=== PATIENT | female | born 1930 | race Caucasian/White ===

== ENCOUNTER → 2016-11-10 | Outpatient (CLI) | payer MEDICARE, BC ==
[~2016-11-10] MED LIST: CYCLOBENZAPRINE5 MG PO; IBUPROFEN800 MG PO; LORTAB 10-3251 EACH PO; METFORMIN HCL500 M1 PO; METFORMIN HCL500 M2 PO; PILOCARPINE HCL5 MG PO; POLYSPORIN15 GM TOP; SIMVASTATIN80 MG PO; WELLBUTRIN PO
--- NOTE | ~2016-11-10 | CR181 ---
[facility] A Service [facility] RADIOLOGY TEXT RESULTS PATIENT: NICHOLE MAC LOCATION: [facility] : 28 UNIT #: [id number] AGE: [address]: Justin Doctor NOT IN SYSTEM SEX: F ORDER DR: [id number] [address] [address] [id number] O MR#: [id number] Acc #: [id number] NAME: NICHOLE MAC : 1930 SEX: F STUDY DATE/TIME: 11/10/2016 10:43 UNIT: [facility]AD ROOM: STUDY DESCRIPTION: CR Lumbar Spine 2 or 3 Views Attending Physician: Generic Doctor Not In System Referring Physician: Generic Doctor Not In System Ordering Physician: Physician Non-Staff Primary Care Physician: Roberta Aggarwal M.D. MEDICAL IMAGING REPORT This report is preliminary unless electronic signature is present. EXAM Lumbar spine, 3-view series INDICATIONS Low back pain. Previous lumbar spine surgery. Patient has had symptoms since 2005. COMPARISON 03/30/2015 FINDINGS AP, lateral and coned-down lateral views of the lumbar spine were obtained. The patient appears to have undergone laminectomy at L3 and L4. There is mild disc space narrowing at L4-5 and the other disc spaces are normal. The alignment is normal. IMPRESSION The patient appears to be status post laminectomies at L3 and L4, which has occurred since May 2014. There is no subluxation. There is mild disc space narrowing at L4-5. Dictated by... Delta Gross M.D. THIS IS AN ELECTRONICALLY VERIFIED REPORT Delta Gross M.D. at 11/11/2016 6:04 AM FEL/psc TD: 11/11/2016 03:18 JOB #: [id number] [facility] A [facility] RADIOLOGY TEXT RESULTS PATIENT: NICHOLE MAC LOCATION: [facility] : 28 UNIT #: [id number] AGE: [address]: Generic Doctor NOT IN SYSTEM SEX: F ORDER DR: MEDICAL IMAGING REPORT Page 1 of 1
--- NOTE | ~2016-11-10 | CR58 ---
[facility] A Service of [facility] RADIOLOGY TEXT RESULTS PATIENT: NICHOLE MAC LOCATION: [facility] : 28 UNIT #: [id number] AGE: [address]: JACKI ROCA (HOLLY) SEX: F ORDER DR: [id number] [address] [address] [id number] O MR#: [id number] Acc #: [id number] NAME: NICHOLE MAC : 1930 SEX: F STUDY DATE/TIME: 11/10/2016 10:43 UNIT: [facility] ROOM: STUDY DESCRIPTION: CR Cervical Spine 2 or 3 Views Attending Physician: Holly Roca Aprn Referring Physician: Holly Roca Aprn Ordering Physician: Physician Non-Staff Primary Care Physician: Roberta Aggarwal M.D. MEDICAL IMAGING REPORT This report is preliminary unless electronic signature is present. EXAM Cervical series 11/10/2016 INDICATIONS Degenerative disc disease, spinal stenosis, cervical surgery in 2014, pain for years down the left shoulder. Numbness and tingling on the left, back pain on the left. Neck pain. TECHNIQUE Frontal, lateral, open-mouth odontoid, dedicated odontoid, and flexion/extension views were performed. COMPARISON 07/14/2012 FINDINGS Imaging was initially performed 11/10/2016. Flexion and extension views were not performed, as ordered, and the patient returned for completion of imaging 11/17/2016. Dens and lateral masses intact. Minimal antegrade listhesis of C2 upon C3. Minimal retrograde listhesis of C5 upon C6. Cervicothoracic junction intact. There is degenerative disc disease at C4-5, C5-6 and C6-7. Spurring from C4 inferiorly. Soft tissues unremarkable. There is moderate bilateral facet arthropathy in the dro-yb-cnnbi cervical levels. There is atherosclerotic change of the carotid system on the right. With flexion and extension, there is no significant subluxation. Redemonstration of degenerative change at C1-2. There is a small calcification anterior to C2 that is unchanged and may represent sequela of degenerative change, as well. [facility] A Service of [facility] & [facility] RADIOLOGY TEXT RESULTS PATIENT: NICHOLE MAC LOCATION: [facility] : 28 UNIT #: [id number] AGE: [address]: JACKI ROCA (HOLLY) SEX: F ORDER DR: The patient is status post apparent surgery at the C5 level with interval resection of the C5 spinous process. IMPRESSION 1. No acute fracture. Degenerative changes in the cervical spine related to degenerative disc disease and facet arthropathy. 2. There is mild antegrade listhesis of C2 on C3. There is retrograde listhesis of C5 on C6. No significant subluxation with flexion or extension. 3. Interval postop changes at C5. 4. Chronic degenerative changes also present at C1-2. Dictated by... To Valera M.D. THIS IS AN ELECTRONICALLY VERIFIED REPORT To Valera M.D. at 11/18/2016 5:18 PM TOLU/selwyn TD: 11/18/2016 03:14 JOB #: [id number] MEDICAL IMAGING REPORT Page 1 of 1
== END | disposition home or self-care (01) ==
LOC: SRAD 10:18
DX: M51.36 Other intervertebral disc degeneration, lumbar region (principal); M50.30 Other cervical disc degeneration, unspecified cervical region; M47.892 Other spondylosis, cervical region; M46.92 Unspecified inflammatory spondylopathy, cervical region; M43.12 Spondylolisthesis, cervical region; Z98.890 Other specified postprocedural states
CPT/HCPCS: 72040; 72100